=== PATIENT | female | born 1960 | race Caucasian/White ===

== ENCOUNTER 2019-02-13 08:32 | Outpatient (CLI) | payer OTHER ==
--- NOTE | 2019-02-18 15:46 | MMO ---
Bilateral MAMMO Bilat Screen [facility]. CLINICAL HISTORY: Patient is 58 years old and is seen for screening. The patient has no family history of breast cancer. The patient has no personal history of cancer. VIEWS: The views performed were: bilateral craniocaudal with tomosynthesis and bilateral mediolateral oblique with tomosynthesis. FILMS COMPARED: The present examination has been compared to prior imaging studies performed at [facility] on 08/30/2015, 10/18/2015 and 12/24/2016. MAMMOGRAM FINDINGS: There are scattered fibroglandular densities. There is a new round mass with circumscribed margins seen in the middle region of the left breast at 6 o'clock. In the right breast, there are no suspicious masses, calcifications or areas of architectural distortion. IMPRESSION: NEW MASS IN THE LEFT BREAST REQUIRES ADDITIONAL EVALUATION. AN ULTRASOUND EXAM IS RECOMMENDED. THE RESULTS OF THIS EXAM WERE SENT TO THE PATIENT. ACR BI-RADS Category 0 - Incomplete: Need additional imaging evaluation. [facility] will notify the patient of the need for additional imaging services. MAMMOGRAPHY NOTE: 1. A negative mammogram report should not delay a biopsy if a dominant of clinically suspicious mass is present. 2. Approximately 10% to 15% of breast cancers are not detected by mammography. 3. Adenosis and dense breasts may obscure an underlying neoplasm.
== END 2019-02-13 08:33 | disposition home or self-care (01) ==
LOC: BICMAMMO 08:32
PROVIDERS: ATTEND Family Medicine
DX: Z12.31 Encounter for screening mammogram for malignant neoplasm of breast (principal); N63.23 Unspecified lump in the left breast, lower outer quadrant
CPT/HCPCS: 77063; 77067

== ENCOUNTER 2019-02-26 07:54 | Outpatient (CLI) | payer OTHER ==
--- NOTE | 2019-02-26 08:21 | ULT ---
LIMITED LEFT BREAST ULTRASOUND: Date: 02/26/19 PROVIDED CLINICAL HISTORY: Abnormal screening mammogram. FINDINGS: Limited sonographic interrogation was performed of the left breast at the 6 o'clock location in the r egion of mammographic concern. A simple cyst measuring 9 mm is present in this region, corresponding to the mammogram finding. No concerning sonographic findings are evident. IMPRESSION: BI-RADS Category 2 - Benign findings. Return to annual screening mammography recommended. POS: OFF
== END 2019-02-26 07:55 | disposition home or self-care (01) ==
LOC: BICULT 07:54
PROVIDERS: ATTEND Family Medicine
DX: N63.20 Unspecified lump in the left breast, unspecified quadrant (principal)

== ENCOUNTER 2021-08-23 14:41 | Outpatient (CLI) | payer OTHER ==
[2021-08-23 16:27] LABS: Hemoglobin 13.7 g/dL (12.0-15.5); Mean Corpuscular Hemoglobin 30.4 pg (27.0-33.0); Mean Corpuscular Volume 92.2 fl (81.6-98.3); Mean Platelet Volume 10.3 fl (7.4-10.4); Platelet Count 221 10x3/uL (150-450); RBC Distribution Width 12.2 % (11.5-14.5); White Blood Cell (WBC) Count 4.8 10x3/uL (3.5-10.5)
[2021-08-23 16:50] LABS: INR-International Normal Ratio 0.9; PTT 23.6 sec (22.0-33.0); Prothrombin Time 10.1 sec (9.5-12.1)
[2021-08-23 16:53] LABS: Anion Gap 12 mmol/L (10-20); BUN (Urea Nitrogen) 9 mg/dL (9.8-20.1); Calc. Creatinine Clearance 0 mL/min (70-130); Calcium 11.8 mg/dL (7.8-10.44); Carbon Dioxide 22 mmol/L (22-29); Glucose 86 mg/dL (70-105)
[2021-08-23 17:18] LABS: Chloride 112 mmol/L (98-107); Potassium 4.7 mmol/L (3.5-5.1); Sodium 141 mmol/L (136-145)
[2021-08-24 10:53] LABS: SARS-CoV-2 NAA Rapid Test Not Detected (NotDetected)
== END 2021-08-23 14:42 | disposition home or self-care (01) ==
LOC: LABBT 14:41
PROVIDERS: ATTEND Urology
DX: Z01.818 Encounter for other preprocedural examination (principal); Z20.822 Contact with and (suspected) exposure to COVID-19
CPT/HCPCS: 80048; 85027; 85610; 85730; 93005; 93010; U0002; U0003; U0005

== ENCOUNTER 2021-08-24 11:33 | Day surgery (SDC) | payer OTHER ==
[2021-08-23 15:41] VITALS: BMI 33.6
[2021-08-24] MEDS ORDERED: Fentanyl 100 MCG/2 ML VIAL ONE ×2 (14:00→14:17)
[2021-08-24] MEDS ORDERED: Iothalamate Meglumine 60% 50 ML VIAL FS ONE (14:06)
[2021-08-24] MEDS ORDERED: Levofloxacin 500 mg/D5W 100 ml Premix Bag ONE (14:26)
[2021-08-24] MEDS ORDERED: Ondansetron PF 4 MG/2 ML Vial ONE (15:02)
[2021-08-24] MEDS ORDERED: Lidocaine 1% PF 5 ML VIAL ONE (15:02)
[2021-08-24] MEDS ORDERED: Dexamethasone 20 MG/5 ML VIAL ONE (15:02)
[2021-08-24] MEDS ORDERED: PROPOFOL 200 MG/20 ML VIAL ONE (15:02)
[2021-08-24] MEDS ORDERED: Phenazopyridine HCl 100 MG TAB ONE (15:42)
[2021-08-24] MEDS ORDERED: Oxybutynin 5 MG TAB ONE (15:42)
[2021-08-24] MEDS ORDERED: Ketorolac Tromethamine 30 MG/ML VIAL ONE (15:42)
[2021-08-29 15:14] LABS: CA Oxalate Dihydrate 40 % (.); CA Oxalate Monohydrate 40 % (.); Color Brown (.); Stone Weight 36 mg (.)
== END 2021-08-24 17:28 | disposition home or self-care (01) ==
LOC: SDC 11:33
PROVIDERS: ATTEND Urology
PROC: 0T778DZ Dilation of Left Ureter with Intraluminal Device, Via Natural or Artificial Opening Endoscopic (ICD-10-PCS; principal; 2021-08-24)
PROC: 0TC78ZZ Extirpation of Matter from Left Ureter, Via Natural or Artificial Opening Endoscopic (ICD-10-PCS; principal; 2021-08-24)
DX: N13.2 Hydronephrosis with renal and ureteral calculous obstruction (principal); I10 Essential (primary) hypertension; K21.9 Gastro-esophageal reflux disease without esophagitis; G47.33 Obstructive sleep apnea (adult) (pediatric); E03.9 Hypothyroidism, unspecified; M19.90 Unspecified osteoarthritis, unspecified site; Z79.899 Other long term (current) drug therapy; Z98.1 Arthrodesis status
CPT/HCPCS: 74420; 82365; 88300; C2617; J1100; J1885; J1956; J2405; J2704; J3010; Q9961-U8

== ENCOUNTER 2021-10-02 12:49 | Outpatient (CLI) | payer OTHER | END 2021-10-02 12:50 | disposition home or self-care (01) | LOC: BICULT 12:49 | PROVIDERS: ATTEND Urology | DX: N20.1 Calculus of ureter (principal) | CPT/HCPCS: 76770 ==

== ENCOUNTER 2021-10-17 08:32 | Outpatient (CLI) | payer OTHER | END 2021-10-17 08:33 | disposition home or self-care (01) | LOC: NM 08:32 | PROVIDERS: ATTEND Student in an Organized Health Care Education/Training Program | DX: E21.3 Hyperparathyroidism, unspecified (principal); N20.0 Calculus of kidney; D35.1 Benign neoplasm of parathyroid gland; Z98.1 Arthrodesis status | CPT/HCPCS: 78072; A9500 ==

== ENCOUNTER 2022-01-18 14:49 | Outpatient (CLI) | payer OTHER | END 2022-01-18 14:50 | disposition home or self-care (01) | LOC: BICCT 14:49 | PROVIDERS: ATTEND Student in an Organized Health Care Education/Training Program | DX: D35.1 Benign neoplasm of parathyroid gland (principal); Z98.1 Arthrodesis status | CPT/HCPCS: 70492; 82565 ==

== ENCOUNTER 2024-02-19 13:24 | Outpatient (CLI) | payer OTHER | END 2024-02-19 13:25 | disposition home or self-care (01) | LOC: BICMAMMO 13:24 | PROVIDERS: ATTEND Family Medicine | DX: Z12.31 Encounter for screening mammogram for malignant neoplasm of breast (principal); Z13.820 Encounter for screening for osteoporosis; M85.88 Other specified disorders of bone density and structure, other site; Z78.0 Asymptomatic menopausal state; Z85.850 Personal history of malignant neoplasm of thyroid | CPT/HCPCS: 77063; 77067; 77080 ==